=== PATIENT | female | born 1945 | race Caucasian/White ===

== ENCOUNTER → 2016-12-12 | Outpatient (CLI) | payer MEDICARE, BC ==
[~2016-12-12] VITALS: Ht 170.2 cm; Wt 87.5 kg
[~2016-12-12] MED LIST: /WARF2TA PO; ASPI81TA PO; AUGM875T27 PO; CLAR10CA3 PO; COUM1TAB19 PO; COUM2TAB22 PO; FURO40TA2 PO; HYDR200T2 PO; HYDR200T3 PO; IBUPOTC PO; LASI40TA PO; LEVO175T2 PO; LIDOCAINE 2% INJ 100 MG/5 ML SDV (FOR ANES.) As Ordered ONE; METO12TA PO; MULTTAB4 PO; NS 1,000 ML IV ONE; PLAQ200T PO; PROPOFOL 500 MG/50 ML VIAL As Ordered ONE; SYNT175T2 PO; TYLE500T78 PO; VITA100067 PO; VITAD1000T PO
--- NOTE | 2016-12-12 09:48 | ROOR ---
Patient Name: Joyce Ferrer Procedure Date: 12/12/2016 9:20 AM Date of : 1945 Age: 71 Room: [facility] Gender: Female Note Status: Finalized Procedure: Colonoscopy Indications: Screening for colorectal malignant neoplasm Providers: DO Yung Garcia MD: FORTINO SANDERS Requesting Provider: Medicines: Propofol per Anesthesia Complications: No immediate complications. Procedure: Pre-Anesthesia Assessment: - Prior to the procedure, a History and Physical was performed, and patient medications and allergies were reviewed. The patient is competent. The risks and benefits of the procedure and the sedation options and risks were discussed with the patient. All questions were answered and informed consent was obtained. Patient identification and proposed procedure were verified by the physician, the nurse, the anesthesiologist and the wet process technician in the endoscopy suite. Mental Status Examination: alert and oriented. Airway Examination: normal oropharyngeal airway and neck mobility. Respiratory Examination: clear to auscultation. CV Examination: normal. Prophylactic Antibiotics: The patient does not require prophylactic antibiotics. Prior Anticoagulants: The patient has taken Coumadin (warfarin). ASA Grade Assessment: III - A patient with severe systemic disease. After reviewing the risks and benefits, the patient was deemed in satisfactory condition to undergo the procedure. The anesthesia plan was to use monitored anesthesia care (MAC). Immediately prior to administration of medications, the patient was re-assessed for adequacy to receive sedatives. The heart rate, respiratory rate, oxygen saturations, blood pressure, adequacy of pulmonary ventilation, and response to care were monitored throughout the procedure. The physical status of the patient was re-assessed after the procedure. The Colonoscope was introduced through the anus and advanced to the cecum, identified by the appendiceal orifice, ileocecal valve and palpation. The colonoscopy was performed without difficulty. The patient tolerated the procedure well. Findings: The perianal exam findings include internal hemorrhoids (Grade I). A less than 5 mm polyp was found in the transverse colon. The polyp was hyperplastic. The polyp was removed with a cold biopsy forceps. Resection and retrieval were complete. A 8 mm polyp was found in the sigmoid colon. The polyp was semi-pedunculated. The polyp was removed with a hot snare. Resection was complete, but the polyp tissue was not retrieved. Multiple small and large-mouthed diverticula were found in the sigmoid colon. Impression: - Internal hemorrhoids (Grade I) found on perianal exam. - One less than 5 mm polyp in the transverse colon, removed with a cold biopsy forceps. Resected and retrieved. - One 8 mm polyp in the sigmoid colon, removed with a hot snare. Complete resection. Polyp tissue not retrieved. - Diverticulosis in the sigmoid colon. Recommendation: - Patient has a contact number available for emergencies. The signs and symptoms of potential delayed complications were discussed with the patient. Return to normal activities tomorrow. Written discharge instructions were provided to the patient. - Repeat colonoscopy in 3 - 5 years for surveillance based on pathology results. - Return to my office PRN. Sam Salinas DO 12/12/2016 9:47:42 AM This report has been signed electronically. Number of Addenda: 0 Note Initiated On: 12/12/2016 9:20 AM Estimated Blood Loss: Estimated blood loss: none.
[2016-12-12 10:10] VITALS: BP 167/85
== END ==
LOC: M OPP 08:08
PROVIDERS: ATTEND Surgery
DX: Z12.11 Encounter for screening for malignant neoplasm of colon (principal); K64.0 First degree hemorrhoids; D12.3 Benign neoplasm of transverse colon; D12.5 Benign neoplasm of sigmoid colon; K57.30 Diverticulosis of large intestine without perforation or abscess without bleeding; E03.9 Hypothyroidism, unspecified; M19.90 Unspecified osteoarthritis, unspecified site; M32.9 Systemic lupus erythematosus, unspecified; Z79.01 Long term (current) use of anticoagulants; Z79.899 Other long term (current) drug therapy

== ENCOUNTER 2017-07-02 00:43 | Inpatient (IN) | payer MEDICARE, BC ==
[2017-07-02] MEDS: ONDANSETRON 4MG/2ML VIAL (J2405) IV (01:45)
[2017-07-02] MEDS: MECLIZINE 25 MG TABLET PO ×2 (01:45→21:19)
[2017-07-02 02:29] LABS: HEMATOCRIT 41.9 % (36.0-47.0); HEMOGLOBIN 13.5 g/dl (12.0-16.0); RED BLOOD COUNT 4.76 10^6/uL (4.00-5.40)
[2017-07-02 02:30] LABS: BASO % 0.1 % (0.0-1.0); EOS % 0.1 % (0.0-3.0); IMMATURE GRANULOCYTE % 0.2 % (0-0); MEAN CORPUSCULAR HEMOGLOBIN 28.4 pg (27.0-33.0); MEAN CORPUSCULAR HGB CONC 32.2 g/dl (32.0-36.5); MONO % 4.2 % (0.0-5.0); NEUTROPHILS % 88.4 % (36.0-66.0); PLATELET COUNT, AUTOMATED 324 10^3/uL (150-450)
[2017-07-02 02:31] LABS: LYMPH # 0.6 10^3/uL (1.5-4.5); MONO # 0.4 10^3/uL (0.0-0.8); NEUTROPHILS # 7.9 10^3/uL (1.8-7.7)
[2017-07-02 03:55] LABS: ANION GAP 6 MEQ/L (8-16); BLOOD UREA NITROGEN 18 MG/DL (7-18); CALCIUM LEVEL 8.8 MG/DL (8.8-10.2); CARBON DIOXIDE LEVEL 31 MEQ/L (21-32); CHLORIDE LEVEL 105 MEQ/L (98-107); POTASSIUM SERUM 4.2 MEQ/L (3.5-5.1); SODIUM LEVEL 142 MEQ/L (136-145)
[2017-07-02 03:56] LABS: CK-MB VALUE MASS 1.4 NG/ML (0.0-3.6); CPK CREATINE PHOSPHOKINASE 73 U/L (26-192); CREATININE FOR GFR 0.66 MG/DL (0.55-1.02); GLOMERULAR FILTRATION RATE > 60.0 (>39); MB/CK RELATIVE INDEX 1.91 (< OR =4); TROPONIN I < 0.02 NG/ML (< 0.10)
[2017-07-02 04:05] LABS: INR 2.07; PARTIAL THROMBOPLASTIN TIME 38.2 SECONDS (26.8-37.9)
[2017-07-02 04:29] LABS: GLUCOSE, FASTING 107 MG/DL (83-110)
[2017-07-02] MEDS: LORazepam 2 MG/ML VIAL (J2060) IV (04:34)
[2017-07-02 06:45] LABS: BEDSIDE GLUCOSE 93 MG/DL (83-110)
[2017-07-02] MEDS ORDERED: OMEPRAZOLE 20 MG CAP PO (13:15)
[2017-07-02] MEDS ORDERED: ONDANSETRON 4MG/2ML VIAL (J2405) IV (13:15)
[2017-07-02] MEDS ORDERED: FUROSEMIDE 40 MG TAB PO (13:15)
[2017-07-02] MEDS: LEVOTHYROXINE 75MCG TABLET (0.075MG) PO (14:15)
[2017-07-02] MEDS: LEVOTHYROXINE 100MCG TABLET (0.1MG) PO (14:15)
[2017-07-02] MEDS: VITAMIN D 1,000 INTERNATIONAL UNITS TABLET PO (14:38)
[2017-07-02] MEDS: WARFARIN SOD 2.5 MG TAB PO (18:13)
[2017-07-02] MEDS: HYDROXYCHLOROQUINE 200 MG TAB PO (21:19)
[2017-07-03] MEDS: MECLIZINE 25 MG TABLET PO ×3 (05:41→22:25)
[2017-07-03] MEDS: LEVOTHYROXINE 100MCG TABLET (0.1MG) PO (05:41)
[2017-07-03] MEDS: LEVOTHYROXINE 75MCG TABLET (0.075MG) PO (05:41)
[2017-07-03] MEDS: SODIUM CHLORIDE NASAL 0.65% SPRAY BTL (OCEAN) ×2 (05:44→22:28)
[2017-07-03 06:00] LABS: HEMATOCRIT 39.2 % (36.0-47.0); HEMOGLOBIN 12.4 g/dl (12.0-16.0); MEAN CORPUSCULAR HEMOGLOBIN 28.3 pg (27.0-33.0); MEAN CORPUSCULAR HGB CONC 31.6 g/dl (32.0-36.5); MEAN CORPUSCULAR VOLUME 89.5 fl (80.0-96.0); PLATELET COUNT, AUTOMATED 327 10^3/uL (150-450); RED BLOOD COUNT 4.38 10^6/uL (4.00-5.40); RED CELL DISTRIBUTION WIDTH 14.2 % (11.5-14.5); WHITE BLOOD COUNT 4.6 10^3/uL (4.0-10.0)
[2017-07-03 06:17] LABS: INR 1.96
[2017-07-03 06:22] LABS: ANION GAP 5 MEQ/L (8-16); BLOOD UREA NITROGEN 15 MG/DL (7-18); CALCIUM LEVEL 8.2 MG/DL (8.8-10.2); CARBON DIOXIDE LEVEL 30 MEQ/L (21-32); CHLORIDE LEVEL 106 MEQ/L (98-107); CREATININE FOR GFR 0.51 MG/DL (0.55-1.02); GLOMERULAR FILTRATION RATE > 60.0 (>39); GLUCOSE, FASTING 95 MG/DL (83-110); MAGNESIUM LEVEL 1.9 MG/DL (1.8-2.4); POTASSIUM SERUM 4.2 MEQ/L (3.5-5.1); SODIUM LEVEL 141 MEQ/L (136-145)
[2017-07-03] MEDS: HYDROXYCHLOROQUINE 200 MG TAB PO ×2 (08:43→22:25)
[2017-07-03] MEDS: VITAMIN D 1,000 INTERNATIONAL UNITS TABLET PO (08:43)
[2017-07-03] MEDS ORDERED: ENOXAPARIN 40 MG/0.4 ML SYRINGE (J1650) SC (09:00)
[2017-07-03] MEDS: WARFARIN SOD 2.5 MG TAB PO (17:59)
[2017-07-04] MEDS: LEVOTHYROXINE 75MCG TABLET (0.075MG) PO (05:37)
[2017-07-04] MEDS: LEVOTHYROXINE 100MCG TABLET (0.1MG) PO (05:37)
[2017-07-04] MEDS: MECLIZINE 25 MG TABLET PO ×3 (05:38→21:40)
[2017-07-04] MEDS: SODIUM CHLORIDE NASAL 0.65% SPRAY BTL (OCEAN) ×2 (05:39→21:40)
[2017-07-04] MEDS: ACETAMINOPHEN TAB 650MG DOSE (2X325MG) PO ×2 (05:42→21:50)
[2017-07-04 07:01] LABS: INR 1.66; PROTHROMBIN TIME 20.1 SECONDS (12.4-14.5)
[2017-07-04] MEDS: VITAMIN D 1,000 INTERNATIONAL UNITS TABLET PO (08:56)
[2017-07-04] MEDS: HYDROXYCHLOROQUINE 200 MG TAB PO ×2 (08:57→21:40)
[2017-07-04] MEDS: WARFARIN SOD 2.5 MG TAB PO (18:37)
[2017-07-05] MEDS: LEVOTHYROXINE 100MCG TABLET (0.1MG) PO (06:06)
[2017-07-05] MEDS: MECLIZINE 25 MG TABLET PO ×3 (06:06→21:51)
[2017-07-05] MEDS: LEVOTHYROXINE 75MCG TABLET (0.075MG) PO (06:06)
[2017-07-05] MEDS: ACETAMINOPHEN TAB 650MG DOSE (2X325MG) PO (06:08)
[2017-07-05] MEDS: SODIUM CHLORIDE NASAL 0.65% SPRAY BTL (OCEAN) ×2 (06:08→16:55)
[2017-07-05 06:15] LABS: PROTHROMBIN TIME 20.4 SECONDS (12.4-14.5)
[2017-07-05] MEDS: HYDROXYCHLOROQUINE 200 MG TAB PO ×2 (08:33→21:51)
[2017-07-05] MEDS: VITAMIN D 1,000 INTERNATIONAL UNITS TABLET PO (08:33)
[2017-07-05] MEDS ORDERED: WARFARIN SOD 2.5 MG TAB PO (09:00)
[2017-07-05] MEDS ORDERED: WARFARIN SOD 1 MG TAB PO ×2 (09:00→17:00)
[2017-07-05] MEDS: methylPREDNISolone INJ 125 MG/2 ML VIAL (J2930) IV ×2 (10:31→21:51)
[2017-07-05] MEDS: WARFARIN SOD 2.5 MG TAB PO (16:55)
[2017-07-05] MEDS: WARFARIN SOD 1 MG TAB PO (16:56)
[2017-07-06 06:14] LABS: INR 1.58; PROTHROMBIN TIME 19.3 SECONDS (12.4-14.5)
[2017-07-06] MEDS: LEVOTHYROXINE 75MCG TABLET (0.075MG) PO (06:33)
[2017-07-06] MEDS: MECLIZINE 25 MG TABLET PO ×3 (06:33→21:30)
[2017-07-06] MEDS: LEVOTHYROXINE 100MCG TABLET (0.1MG) PO (06:33)
[2017-07-06 08:30] LABS: HEMATOCRIT 42.6 % (36.0-47.0); HEMOGLOBIN 13.3 g/dl (12.0-16.0); MEAN CORPUSCULAR HEMOGLOBIN 27.9 pg (27.0-33.0); MEAN CORPUSCULAR HGB CONC 31.2 g/dl (32.0-36.5); MEAN CORPUSCULAR VOLUME 89.5 fl (80.0-96.0); PLATELET COUNT, AUTOMATED 312 10^3/uL (150-450); RED BLOOD COUNT 4.76 10^6/uL (4.00-5.40); RED CELL DISTRIBUTION WIDTH 13.7 % (11.5-14.5); WHITE BLOOD COUNT 6.6 10^3/uL (4.0-10.0)
[2017-07-06] MEDS ORDERED: WARFARIN SOD 2 MG TAB PO (08:30)
[2017-07-06 08:39] LABS: ANION GAP 9 MEQ/L (8-16); BLOOD UREA NITROGEN 15 MG/DL (7-18); CALCIUM LEVEL 8.7 MG/DL (8.8-10.2); CARBON DIOXIDE LEVEL 26 MEQ/L (21-32); CHLORIDE LEVEL 108 MEQ/L (98-107); CREATININE FOR GFR 0.46 MG/DL (0.55-1.02); GLOMERULAR FILTRATION RATE > 60.0 (>39); GLUCOSE, FASTING 140 MG/DL (83-110); POTASSIUM SERUM 4.7 MEQ/L (3.5-5.1); SODIUM LEVEL 143 MEQ/L (136-145)
[2017-07-06] MEDS: VITAMIN D 1,000 INTERNATIONAL UNITS TABLET PO (10:07)
[2017-07-06 10:08] LABS: NT-PRO BNP 685 PG/ML (<125)
[2017-07-06] MEDS: methylPREDNISolone INJ 125 MG/2 ML VIAL (J2930) IV ×2 (10:08→21:31)
[2017-07-06] MEDS: HYDROXYCHLOROQUINE 200 MG TAB PO ×2 (10:08→21:30)
[2017-07-06] MEDS: WARFARIN SOD 3 MG TAB PO (17:54)
[2017-07-06] MEDS: WARFARIN SOD 2 MG TAB PO (17:54)
[2017-07-06] MEDS: SODIUM CHLORIDE NASAL 0.65% SPRAY BTL (OCEAN) (21:31)
[2017-07-07] MEDS: MECLIZINE 25 MG TABLET PO ×3 (05:32→21:29)
[2017-07-07] MEDS: LEVOTHYROXINE 100MCG TABLET (0.1MG) PO (05:32)
[2017-07-07] MEDS: SODIUM CHLORIDE NASAL 0.65% SPRAY BTL (OCEAN) (05:32)
[2017-07-07] MEDS: LEVOTHYROXINE 75MCG TABLET (0.075MG) PO (05:32)
[2017-07-07 06:19] LABS: INR 2.12; PROTHROMBIN TIME 24.5 SECONDS (12.4-14.5)
[2017-07-07] MEDS: VITAMIN D 1,000 INTERNATIONAL UNITS TABLET PO (07:56)
[2017-07-07] MEDS: HYDROXYCHLOROQUINE 200 MG TAB PO ×2 (07:57→21:29)
[2017-07-07] MEDS: methylPREDNISolone INJ 125 MG/2 ML VIAL (J2930) IV ×2 (10:40→21:29)
[2017-07-07] MEDS: WARFARIN SOD 3 MG TAB PO (16:14)
[2017-07-08] MEDS: MECLIZINE 25 MG TABLET PO ×2 (06:11→13:34)
[2017-07-08] MEDS: LEVOTHYROXINE 75MCG TABLET (0.075MG) PO (06:11)
[2017-07-08] MEDS: LEVOTHYROXINE 100MCG TABLET (0.1MG) PO (06:11)
[2017-07-08 06:17] LABS: INR 3.04; PROTHROMBIN TIME 32.8 SECONDS (12.4-14.5)
[2017-07-08] MEDS: methylPREDNISolone INJ 125 MG/2 ML VIAL (J2930) IV (08:55)
[2017-07-08] MEDS: VITAMIN D 1,000 INTERNATIONAL UNITS TABLET PO (08:55)
[2017-07-08] MEDS: HYDROXYCHLOROQUINE 200 MG TAB PO (08:55)
== END 2017-07-08 13:55 | disposition home or self-care (01) | DRG 547 ==
LOC: M ED 00:43 → M ED INP 13:10 → M MSPAV 17:37
DX: M32.19 Other organ or system involvement in systemic lupus erythematosus (principal); H83.09 Labyrinthitis, unspecified ear; E03.9 Hypothyroidism, unspecified; Z86.711 Personal history of pulmonary embolism; Z79.01 Long term (current) use of anticoagulants; Z85.41 Personal history of malignant neoplasm of cervix uteri; Z79.899 Other long term (current) drug therapy

== ENCOUNTER 2017-07-16 15:29 | Outpatient (RCR) | payer MEDICARE, BC | END 2017-07-17 | LOC: M PT 15:29 | DX: Z51.89 Encounter for other specified aftercare (principal); R26.89 Other abnormalities of gait and mobility; R42 Dizziness and giddiness; M32.9 Systemic lupus erythematosus, unspecified | CPT/HCPCS: 97162 ==

== ENCOUNTER 2017-07-18 10:51 | Outpatient (RCR) | payer MEDICARE, BC | END 2017-08-14 | LOC: M PT 07-25 10:45 | DX: Z51.89 Encounter for other specified aftercare (principal); R42 Dizziness and giddiness; R26.89 Other abnormalities of gait and mobility | CPT/HCPCS: 97112 ==

== ENCOUNTER 2017-08-20 11:51 | Outpatient (RCR) | payer MEDICARE, BC | END 2017-09-14 | LOC: M PT 11:51 | DX: Z51.89 Encounter for other specified aftercare (principal); H81.399 Other peripheral vertigo, unspecified ear; R26.89 Other abnormalities of gait and mobility | CPT/HCPCS: 97112 ==

== ENCOUNTER → 2018-06-03 | Outpatient (REF) | payer MEDICARE, BC ==
[~2018-06-03] MED LIST changes: +JANT2TAB PO; +JANT3TAB PO; -LIDOCAINE 2% INJ 100 MG/5 ML SDV (FOR ANES.) As Ordered ONE; +MECL-68 PO; -NS 1,000 ML IV ONE; +OMEP40CA2 PO; -PROPOFOL 500 MG/50 ML VIAL As Ordered ONE; +ZOFR4TAB16 PO
[2018-06-03 13:23] LABS: TOTAL PROTEIN 6.5 GM/DL (6.4-8.2)
[2018-06-03 13:32] LABS: FOLATE 5.4 NG/ML (>5.4); VITAMIN B12 LEVEL 387 PG/ML (247-911)
[2018-06-03 13:36] LABS: HEMOGLOBIN A1c 5.5 %
[2018-06-04 13:31] LABS: ALBUMIN % 51.6 % (55.8-66.1); ALPHA-1-GLOBULIN % 6.2 % (2.9-4.9); ALPHA-2-GLOBULINS % 12.3 % (7.1-11.8); BETA-1-GLOBULINS % 6.4 % (4.7-7.2); BETA-2-GLOBULINS % 5.7 % (3.2-6.5); GAMMA GLOBULIN % 17.8 % (11.1-18.8)
[2018-06-04 13:32] LABS: ALBUMIN 3.35 GM/DL (3.29-5.55); BETA-1-GLOBULINS 0.42 GM/DL (0.28-0.60); BETA-2-GLOBULINS 0.37 GM/DL (0.19-0.55); GAMMA GLOBULINS 1.16 GM/DL (0.65-1.58)
[2018-06-07 00:25] LABS: VITAMIN B1 LEVEL WHOLE BLOOD 126.4 nmol/L (66.5-200.0); VITAMIN B6,PYRIDOXAL PHOSPHATE 2.2 ug/L (2.0-32.8); VITAMIN E(GAMMA TOCOPHEROL) 1.3 mg/L (0.5-4.9)
== END ==
LOC: M LABNEURO 11:09
PROVIDERS: ATTEND Psychiatry & Neurology Neurology
DX: E11.9 Type 2 diabetes mellitus without complications (principal); E53.8 Deficiency of other specified B group vitamins

== ENCOUNTER → 2020-11-10 | Outpatient (CLI) | payer MEDICARE, BC ==
[~2020-11-10] MED LIST changes: -/WARF2TA PO; -ASPI81TA PO; +CHIL1CHW5 PO; +COUM1TAB16 PO; -MECL-68 PO; +MECL1TAB31 PO; +METO-346 PO; -METO12TA PO; -OMEP40CA2 PO; +OMEP40CA97 PO
--- NOTE | 2020-11-10 09:49 | DEXAMM ---
INDICATION: M81.0 AGE RELATED OSTEOPOROSIS. COMPARISON: Comparison studies are from October 19, 2008, May 15, 2005, and April 11, 2000.. TECHNIQUE: Bone density was measured using dual-energy x-ray absorptionmetry (DEXA). FINDINGS: AP SPINE L1-L4 BMD 1.174 g/cm2 Young Adult T-Score -0.1 Age Matched Z-Score 1.7. LT FEMUR, TOTAL BMD 0.802 g/cm2 Young Adult T-Score -1.6 Age Matched Z-Score 0.2. LT NECK BMD 0.770 g/cm2 Young Adult T-Score -1.9 Age Matched Z-Score 0.1. RT FEMUR, TOTAL BMD 0.797 g/cm2 Young Adult T-Score -1.7 Age Matched Z-Score 0.2. RT NECK BMD 0.788 g/cm2 Young Adult T-Score -1.8 Age Matched Z-Score 0.2. IMPRESSION: There is normal bone density of the spine. There is low bone density of the left hip. There is low bone density of the right hip. The density of the spine has decreased 5.7% since the initial exam on April 11, 2000. The density of the spine decreased 13.0% since most recent exam on October 19, 2008. The density of the left hip has decreased 25.0% since initial exam on April 11, 2000. The density of the left hip has decreased 25.7% since most recent exam on October 19, 2008. The density of the right hip has decreased 25.9% since the initial exam on April 11, 2000. The density of the right hip has decreased 24.7% since the most recent exam on October 19, 2008. FOLLOW-UP: Recommendation for the next bone density exam: 2 years. <Electronically signed by Odin Sanchez > 11/10/20 0945
== END ==
LOC: M WHC 08:57
PROVIDERS: ATTEND Physician Assistant
DX: M81.0 Age-related osteoporosis without current pathological fracture (principal)

== ENCOUNTER 2022-01-11 10:39 | Inpatient (IN) | payer MEDICARE, BC ==
[2022-01-11] VITALS (11 sets, daily range): BP systolic 74–133; BP diastolic 48–75
[~2022-01-11] VITALS: Ht 167.6 cm; Wt 73.0 kg
[~2022-01-11 10:39] MED LIST changes: +OMEP40CA4 PO; -OMEP40CA97 PO
[2022-01-11] MEDS ORDERED: METH4PACK PO (11:04)
[2022-01-11] MEDS ORDERED: ONDANSETRON 4MG 2ML VIAL IV ONE (11:15)
[2022-01-11 11:49] LABS: BASO % 0.3 % (0.0-1.0); HEMATOCRIT 46.2 % (36.0-47.0); HEMOGLOBIN 14.3 g/dl (12.0-15.5); LYMPH # 0.6 10^3/uL (1.5-5.0); LYMPH % 8.1 % (24.0-44.0); MEAN CORPUSCULAR HEMOGLOBIN 28.2 pg (27.0-33.0); MEAN CORPUSCULAR VOLUME 91.1 fl (80.0-96.0); MONO # 0.5 10^3/uL (0.0-0.8); MONO % 7.6 % (2.0-8.0); NEUTROPHILS # 5.8 10^3/uL (1.5-8.5); NEUTROPHILS % 83.6 % (36.0-66.0); PLATELET COUNT, AUTOMATED 209 10^3/uL (150-450); RED BLOOD COUNT 5.07 10^6/uL (4.00-5.40)
[2022-01-11 12:18] LABS: ALBUMIN 3.1 GM/DL (3.2-5.2); ALT/SGPT 26 U/L (12-78); BILIRUBIN,TOTAL 0.5 MG/DL (0.2-1.0); BLOOD UREA NITROGEN 11 MG/DL (7-18); CARBON DIOXIDE LEVEL 35 MEQ/L (21-32); CHLORIDE LEVEL 101 MEQ/L (98-107); GLOMERULAR FILTRATION RATE > 60.0 (>39); GLUCOSE, FASTING 83 MG/DL (70-100); POTASSIUM SERUM 4.2 MEQ/L (3.5-5.1); SODIUM LEVEL 140 MEQ/L (136-145); TOTAL PROTEIN 6.3 GM/DL (6.4-8.2)
[2022-01-11 13:03] LABS: BASO % 0.4 % (0.0-1.0); HEMATOCRIT 49.9 % (36.0-47.0); HEMOGLOBIN 15.2 g/dl (12.0-15.5); LYMPH # 1.1 10^3/uL (1.5-5.0); LYMPH % 13.9 % (24.0-44.0); MEAN CORPUSCULAR HEMOGLOBIN 28.3 pg (27.0-33.0); MEAN CORPUSCULAR HGB CONC 30.5 g/dl (32.0-36.5); MEAN CORPUSCULAR VOLUME 92.8 fl (80.0-96.0); MONO # 0.6 10^3/uL (0.0-0.8); MONO % 7.6 % (2.0-8.0); NEUTROPHILS # 6.3 10^3/uL (1.5-8.5); NEUTROPHILS % 77.4 % (36.0-66.0); PLATELET COUNT, AUTOMATED 253 10^3/uL (150-450); RED BLOOD COUNT 5.38 10^6/uL (4.00-5.40); WHITE BLOOD COUNT 8.2 10^3/uL (4.0-10.0)
[2022-01-11 13:13] LABS: ABG BASE EXCESS 6.4 (-2.0-2.0); ABG HCO3 42.4 MEQ/L (22.0-26.0); ABG O2 SATURATION 96.3 % (95.0-99.0); ABG PARTIAL PRESSURE O2 104.2 mmHg (75.0-100.0); ABG STANDARD HCO3 30.2 MEQ/L (22.0-26.0); ABG TOTAL CO2 46.8 MEQ/L (23.0-31.0)
[2022-01-11] MEDS ORDERED: FUROSEMIDE 100MG/10ML VIAL (J1940) IV ONE (13:15)
[2022-01-11 13:16] LABS: INR 2.49; PROTHROMBIN TIME 27.3 SECONDS (12.7-14.5)
[2022-01-11 13:18] LABS: ABG PARTIAL PRESSURE CO2 143.1 mmHg (35.0-45.0)
[2022-01-11] MEDS ORDERED: ETOMIDATE INJ 20MG/10ML VIAL IV STA (13:26)
[2022-01-11] MEDS ORDERED: SUCCINYLCHOLINE INJ 200 MG/10 ML VIAL (J0330) IV STA (13:27)
[2022-01-11] MEDS ORDERED: PROPOFOL 1,000 MG/100 ML VIAL As Ordered ONE (13:33)
[2022-01-11] MEDS ORDERED: propofoL 1,000 MG in IV 1 EA IV SCH (13:45)
[2022-01-11] MEDS ORDERED: MIDAZOLAM INJ 2MG/2ML VIAL (J2250 PER 1MG) IV STA ×2 (13:55→16:45)
[2022-01-11] MEDS ORDERED: MIDAZOLAM INJ 2MG/2ML VIAL (J2250 PER 1MG) As Ordered ONE (13:56)
[2022-01-11] MEDS ORDERED: IPRATROPIUM 0.5MG/ALBUTEROL 2.5MG INH SOL UD 3ML (DUONEB) NEB ONE (14:05)
[2022-01-11] MEDS ORDERED: methylPREDNISolone 125MG 2ML VIAL IV ONE (14:30)
[2022-01-11 14:52] LABS: ABG BASE EXCESS 10.1 (-2.0-2.0); ABG HCO3 29.7 MEQ/L (22.0-26.0); ABG O2 SATURATION 99.7 % (95.0-99.0); ABG PARTIAL PRESSURE CO2 26.4 mmHg (35.0-45.0); ABG STANDARD HCO3 33.9 MEQ/L (22.0-26.0); ABG TOTAL CO2 30.5 MEQ/L (23.0-31.0)
[2022-01-11 15:05] LABS: ABG pH (ARTERIAL) 7.669 UNITS (7.350-7.450)
[2022-01-11 15:22] LABS: ALBUMIN 3.3 GM/DL (3.2-5.2); ALT/SGPT 28 U/L (12-78); BILIRUBIN,DIRECT 0.2 MG/DL (0.0-0.2); BILIRUBIN,TOTAL 0.6 MG/DL (0.2-1.0); BLOOD UREA NITROGEN 11 MG/DL (7-18); CALCIUM LEVEL 8.8 MG/DL (8.8-10.2); CARBON DIOXIDE LEVEL 36 MEQ/L (21-32); CHLORIDE LEVEL 100 MEQ/L (98-107); CREATININE FOR GFR 0.43 MG/DL (0.55-1.30); GLOMERULAR FILTRATION RATE > 60.0 (>39); GLUCOSE, FASTING 126 MG/DL (70-100); POTASSIUM SERUM 4.4 MEQ/L (3.5-5.1); SODIUM LEVEL 139 MEQ/L (136-145); THYROXINE (T4) 14.4 UG/DL (4.5-12.0); TOTAL PROTEIN 6.7 GM/DL (6.4-8.2)
[2022-01-11] MEDS: IPRATROPIUM 0.5MG/ALBUTEROL 2.5MG INH SOL UD 3ML (DUONEB) NEB SCH ×2 (15:31→20:20)
[2022-01-11] MEDS ORDERED: REFRIGERATOR IV KEYS XX PRN (16:00)
[2022-01-11] MEDS ORDERED: MIDAZOLAM INJ 2MG/2ML VIAL (J2250 PER 1MG) IV ONE (16:10)
[2022-01-11] MEDS: MIDAZOLAM HCL 100 MG in D5W 80 ML IV SCH (16:10)
[2022-01-11] MEDS ORDERED: FURO20TA2 PO (16:14)
[2022-01-11] MEDS ORDERED: IBAN150T6 PO (16:14)
[2022-01-11] MEDS ORDERED: VITA100093 PO (16:14)
[2022-01-11] MEDS ORDERED: ACET-683 PO (16:14)
[2022-01-11] MEDS ORDERED: MECL-86 PO (16:14)
[2022-01-11] MEDS ORDERED: HOME MED LIST COMPLETE! XX SCH (16:15)
[2022-01-11 16:29] LABS: NT-PRO BNP 1708 PG/ML (<450)
[2022-01-11] MEDS ORDERED: MIDAZOLAM HCL 100 MG in D5W 80 ML IV SCH (16:50)
[2022-01-11 17:49] LABS: ABG BASE EXCESS 12.2 (-2.0-2.0); ABG HCO3 33.9 MEQ/L (22.0-26.0); ABG O2 SATURATION 98.5 % (95.0-99.0); ABG PARTIAL PRESSURE CO2 33.7 mmHg (35.0-45.0); ABG PARTIAL PRESSURE O2 95.9 mmHg (75.0-100.0); ABG STANDARD HCO3 36.1 MEQ/L (22.0-26.0); ABG TOTAL CO2 34.9 MEQ/L (23.0-31.0)
[2022-01-11] MEDS ORDERED: ETOMIDATE INJ 20MG/10ML VIAL ONE (18:13)
[2022-01-11] MEDS ORDERED: SUCCINYLCHOLINE 100 MG/5 ML SYRINGE (J0330) ONE (18:13)
[2022-01-11 19:40] LABS: MB/CK RELATIVE INDEX 1.05 (< OR =4)
[2022-01-11 20:42] LABS: ABG BASE EXCESS 9.6 (-2.0-2.0); ABG O2 SATURATION 99.3 % (95.0-99.0); ABG PARTIAL PRESSURE CO2 35.8 mmHg (35.0-45.0); ABG PARTIAL PRESSURE O2 146.9 mmHg (75.0-100.0); ABG STANDARD HCO3 33.4 MEQ/L (22.0-26.0); ABG TOTAL CO2 33.1 MEQ/L (23.0-31.0); ABG pH (ARTERIAL) 7.569 UNITS (7.350-7.450)
[2022-01-11] MEDS: CHLORHEXIDINE GLUCONATE 0.12 % 15ML UDC (PERIDEX ORAL RINSE) MT SCH (22:40)
[2022-01-12] VITALS (25 sets, daily range): BP systolic 86–125; BP diastolic 39–68
[2022-01-12] MEDS ORDERED: NS 1,000 ML IV SCH (01:45)
[2022-01-12 05:23] LABS: HEMATOCRIT 44.6 % (36.0-47.0); HEMOGLOBIN 14.1 g/dl (12.0-15.5); MEAN CORPUSCULAR HGB CONC 31.6 g/dl (32.0-36.5); MEAN CORPUSCULAR VOLUME 88.5 fl (80.0-96.0); PLATELET COUNT, AUTOMATED 204 10^3/uL (150-450); RED BLOOD COUNT 5.04 10^6/uL (4.00-5.40); WHITE BLOOD COUNT 10.8 10^3/uL (4.0-10.0)
[2022-01-12 05:57] LABS: ALBUMIN 2.7 GM/DL (3.2-5.2); ALT/SGPT 31 U/L (12-78); BILIRUBIN,TOTAL 0.9 MG/DL (0.2-1.0); BLOOD UREA NITROGEN 21 MG/DL (7-18); CALCIUM LEVEL 8.6 MG/DL (8.8-10.2); CARBON DIOXIDE LEVEL 34 MEQ/L (21-32); CHLORIDE LEVEL 100 MEQ/L (98-107); CREATININE FOR GFR 0.65 MG/DL (0.55-1.30); GLOMERULAR FILTRATION RATE > 60.0 (>39); GLUCOSE, FASTING 103 MG/DL (70-100); MAGNESIUM LEVEL 1.8 MG/DL (1.8-2.4); POTASSIUM SERUM 3.6 MEQ/L (3.5-5.1); SODIUM LEVEL 142 MEQ/L (136-145); TOTAL PROTEIN 6.2 GM/DL (6.4-8.2)
[2022-01-12 06:03] LABS: ABG BASE EXCESS 10.2 (-2.0-2.0); ABG O2 SATURATION 98.8 % (95.0-99.0); ABG PARTIAL PRESSURE CO2 41.9 mmHg (35.0-45.0); ABG PARTIAL PRESSURE O2 124.3 mmHg (75.0-100.0); ABG TOTAL CO2 35.3 MEQ/L (23.0-31.0); ABG pH (ARTERIAL) 7.527 UNITS (7.350-7.450)
[2022-01-12] MEDS: IPRATROPIUM 0.5MG/ALBUTEROL 2.5MG INH SOL UD 3ML (DUONEB) NEB SCH ×4 (07:04→19:53)
[2022-01-12] MEDS: MIDAZOLAM HCL 100 MG in D5W 80 ML IV SCH (07:50)
[2022-01-12 08:17] LABS: INR 2.94
[2022-01-12] MEDS: CHLORHEXIDINE GLUCONATE 0.12 % 15ML UDC (PERIDEX ORAL RINSE) MT SCH ×2 (08:46→20:03)
[2022-01-12] MEDS ORDERED: dexmedeTOMidine 200 MCG in IV 1 EA IV SCH (09:00)
[2022-01-12] MEDS: HYDROXYCHLOROQUINE 200 MG TAB PO SCH ×3 (11:28→20:03)
[2022-01-12] MEDS: PANTOPRAZOLE 40MG VIAL IV SCH (11:28)
[2022-01-12] MEDS: NS 1,000 ML IV SCH (14:30)
[2022-01-12] MEDS ORDERED: WARFARIN SOD 3MG TAB PO SCH (17:00)
[2022-01-12] MEDS: fentaNYL 100 MCG/2 ML INJECTION IV PRN (22:52)
[2022-01-13] VITALS (29 sets, daily range): BP systolic 93–154; BP diastolic 51–72
[2022-01-13] MEDS: NS 1,000 ML IV SCH ×3 (00:34→21:14)
[2022-01-13] MEDS ORDERED: OLANZapine INTRAMUSCULAR 10MG VIAL IM ONE (02:00)
[2022-01-13] MEDS: MIDAZOLAM HCL 100 MG in D5W 80 ML IV SCH (03:53)
[2022-01-13 04:29] LABS: INR 2.61; PROTHROMBIN TIME 28.3 SECONDS (12.7-14.5)
[2022-01-13 06:22] LABS: ABG BASE EXCESS 8.2 (-2.0-2.0); ABG HCO3 33.7 MEQ/L (22.0-26.0); ABG O2 SATURATION 95.5 % (95.0-99.0); ABG PARTIAL PRESSURE CO2 50.3 mmHg (35.0-45.0); ABG PARTIAL PRESSURE O2 79.1 mmHg (75.0-100.0); ABG STANDARD HCO3 31.9 MEQ/L (22.0-26.0); ABG TOTAL CO2 35.3 MEQ/L (23.0-31.0); ABG pH (ARTERIAL) 7.444 UNITS (7.350-7.450)
[2022-01-13] MEDS: IPRATROPIUM 0.5MG/ALBUTEROL 2.5MG INH SOL UD 3ML (DUONEB) NEB SCH ×4 (07:31→19:04)
[2022-01-13 07:51] LABS: ALBUMIN 2.5 GM/DL (3.2-5.2); ALT/SGPT 25 U/L (12-78); BILIRUBIN,TOTAL 0.9 MG/DL (0.2-1.0); BLOOD UREA NITROGEN 23 MG/DL (7-18); CALCIUM LEVEL 7.9 MG/DL (8.8-10.2); CARBON DIOXIDE LEVEL 31 MEQ/L (21-32); CHLORIDE LEVEL 106 MEQ/L (98-107); CREATININE FOR GFR 0.55 MG/DL (0.55-1.30); GLOMERULAR FILTRATION RATE > 60.0 (>39); GLUCOSE, FASTING 119 MG/DL (70-100); PHOSPHORUS LEVEL 3.8 MG/DL (2.5-4.9); POTASSIUM SERUM 3.9 MEQ/L (3.5-5.1); SODIUM LEVEL 144 MEQ/L (136-145); TOTAL PROTEIN 5.4 GM/DL (6.4-8.2)
[2022-01-13] MEDS: PANTOPRAZOLE 40MG VIAL IV SCH (08:03)
[2022-01-13] MEDS: HYDROXYCHLOROQUINE 200 MG TAB PO SCH ×3 (08:03→21:14)
[2022-01-13] MEDS: CHLORHEXIDINE GLUCONATE 0.12 % 15ML UDC (PERIDEX ORAL RINSE) MT SCH ×2 (08:03→21:14)
[2022-01-13 08:11] LABS: BASO % 0.3 % (0.0-1.0); HEMOGLOBIN 13.5 g/dl (12.0-15.5); LYMPH # 0.7 10^3/uL (1.5-5.0); MEAN CORPUSCULAR HEMOGLOBIN 28.2 pg (27.0-33.0); MEAN CORPUSCULAR HGB CONC 31.4 g/dl (32.0-36.5); MEAN CORPUSCULAR VOLUME 89.8 fl (80.0-96.0); MONO % 10.8 % (2.0-8.0); NEUTROPHILS # 7.5 10^3/uL (1.5-8.5); NEUTROPHILS % 80.3 % (36.0-66.0); PLATELET COUNT, AUTOMATED 153 10^3/uL (150-450); RED BLOOD COUNT 4.79 10^6/uL (4.00-5.40); WHITE BLOOD COUNT 9.3 10^3/uL (4.0-10.0)
[2022-01-13] MEDS ORDERED: FUROSEMIDE 20MG/2ML VIAL (J1940) IV ONE (09:15)
[2022-01-13] MEDS: MIDAZOLAM INJ 2MG/2ML VIAL (J2250 PER 1MG) IV PRN ×3 (10:25→21:40)
[2022-01-13] MEDS: fentaNYL 100 MCG/2 ML INJECTION IV PRN ×2 (10:29→16:05)
[2022-01-13] MEDS ORDERED: MORPHINE 2 MG/ML 1ML VIAL IV ONE (10:45)
[2022-01-13] MEDS: dexmedeTOMidine 200 MCG in IV 1 EA IV SCH ×4 (10:47→22:48)
[2022-01-13 14:14] LABS: ANTI DOUBLE STRAND-DNA AB 1 IU/mL (0-9); ANTINUCLEAR ANTIBODIES DIRECT Positive (Negative); RNP ANTIBODIES <0.2 AI (0.0-0.9); SJOGREN'S ANTI SS-A <0.2 AI (0.0-0.9); SJOGREN'S ANTI SS-B <0.2 AI (0.0-0.9); SMITH ANTIBODIES <0.2 AI (0.0-0.9)
[2022-01-13] MEDS ORDERED: WARFARIN SOD 2MG TAB PO SCH (17:00)
[2022-01-14] VITALS (33 sets, daily range): BP systolic 102–194; BP diastolic 54–94
[2022-01-14] MEDS: dexmedeTOMidine 200 MCG in IV 1 EA IV SCH (01:40)
[2022-01-14] MEDS: fentaNYL 100 MCG/2 ML INJECTION IV PRN ×2 (02:42→04:44)
[2022-01-14] MEDS: MIDAZOLAM INJ 2MG/2ML VIAL (J2250 PER 1MG) IV PRN (02:46)
[2022-01-14] MEDS: NS 1,000 ML IV SCH ×2 (04:53→17:30)
[2022-01-14 04:54] LABS: BASO % 0.3 % (0.0-1.0); EOS # 0.5 10^3/uL (0.0-0.5); EOS % 4.2 % (0.0-3.0); HEMATOCRIT 45.1 % (36.0-47.0); HEMOGLOBIN 13.9 g/dl (12.0-15.5); LYMPH # 0.5 10^3/uL (1.5-5.0); LYMPH % 4.2 % (24.0-44.0); MEAN CORPUSCULAR HEMOGLOBIN 27.7 pg (27.0-33.0); MEAN CORPUSCULAR HGB CONC 30.8 g/dl (32.0-36.5); MONO # 0.8 10^3/uL (0.0-0.8); MONO % 6.4 % (2.0-8.0); NEUTROPHILS # 10.3 10^3/uL (1.5-8.5); NEUTROPHILS % 84.2 % (36.0-66.0); PLATELET COUNT, AUTOMATED 158 10^3/uL (150-450); RED BLOOD COUNT 5.01 10^6/uL (4.00-5.40); WHITE BLOOD COUNT 12.3 10^3/uL (4.0-10.0)
[2022-01-14 05:27] LABS: ALBUMIN 2.1 GM/DL (3.2-5.2); ALT/SGPT 22 U/L (12-78); BILIRUBIN,TOTAL 1.2 MG/DL (0.2-1.0); BLOOD UREA NITROGEN 14 MG/DL (7-18); CARBON DIOXIDE LEVEL 27 MEQ/L (21-32); CHLORIDE LEVEL 108 MEQ/L (98-107); CREATININE FOR GFR 0.47 MG/DL (0.55-1.30); GLOMERULAR FILTRATION RATE > 60.0 (>39); GLUCOSE, FASTING 132 MG/DL (70-100); MAGNESIUM LEVEL 1.8 MG/DL (1.8-2.4); POTASSIUM SERUM 4.4 MEQ/L (3.5-5.1); SODIUM LEVEL 140 MEQ/L (136-145); TOTAL PROTEIN 5.8 GM/DL (6.4-8.2)
[2022-01-14 05:40] LABS: ABG BASE EXCESS 3.3 (-2.0-2.0); ABG HCO3 28.6 MEQ/L (22.0-26.0); ABG O2 SATURATION 97.6 % (95.0-99.0); ABG PARTIAL PRESSURE CO2 45.7 mmHg (35.0-45.0); ABG STANDARD HCO3 27.5 MEQ/L (22.0-26.0); ABG pH (ARTERIAL) 7.414 UNITS (7.350-7.450)
[2022-01-14] MEDS ORDERED: OLANZapine INTRAMUSCULAR 10MG VIAL IM ONE ×2 (06:00→07:00)
[2022-01-14] MEDS: IPRATROPIUM 0.5MG/ALBUTEROL 2.5MG INH SOL UD 3ML (DUONEB) NEB SCH ×4 (07:08→19:14)
[2022-01-14] MEDS ORDERED: METOPROLOL 5 MG/5 ML VIAL IV STA (08:03)
[2022-01-14] MEDS ORDERED: dexameTHASONE 4 MG/ML 1ML VIAL (J1100 PER 1MG) IV ONE (08:05)
[2022-01-14] MEDS ORDERED: FUROSEMIDE 20MG/2ML VIAL (J1940) IV ONE (08:05)
[2022-01-14] MEDS: PANTOPRAZOLE 40MG VIAL IV SCH (08:19)
[2022-01-14] MEDS: HYDROXYCHLOROQUINE 200 MG TAB PO SCH ×3 (08:20→20:56)
[2022-01-14] MEDS: CHLORHEXIDINE GLUCONATE 0.12 % 15ML UDC (PERIDEX ORAL RINSE) MT SCH ×2 (08:20→20:56)
[2022-01-14 08:39] LABS: INR 1.53; PROTHROMBIN TIME 18.8 SECONDS (12.7-14.5)
[2022-01-14 14:02] LABS: ABG BASE EXCESS 1.9 (-2.0-2.0); ABG O2 SATURATION 97.1 % (95.0-99.0); ABG PARTIAL PRESSURE CO2 39.1 mmHg (35.0-45.0); ABG PARTIAL PRESSURE O2 84.8 mmHg (75.0-100.0); ABG STANDARD HCO3 26.1 MEQ/L (22.0-26.0); ABG TOTAL CO2 27.2 MEQ/L (23.0-31.0); ABG pH (ARTERIAL) 7.441 UNITS (7.350-7.450)
[2022-01-14] MEDS ORDERED: WARFARIN SOD 3MG TAB PO ONE (17:00)
[2022-01-14] MEDS: ACETYLCYSTEINE 10% 30 ML VIAL INH SCH (19:14)
[2022-01-15] VITALS (23 sets, daily range): BP systolic 99–147; BP diastolic 55–76; O2SAT 96–97
[2022-01-15] MEDS: NS 1,000 ML IV SCH (02:30)
[2022-01-15 05:10] LABS: BASO % 0.2 % (0.0-1.0); EOS # 0.1 10^3/uL (0.0-0.5); EOS % 0.5 % (0.0-3.0); HEMATOCRIT 43.4 % (36.0-47.0); HEMOGLOBIN 13.1 g/dl (12.0-15.5); LYMPH # 0.5 10^3/uL (1.5-5.0); LYMPH % 4.1 % (24.0-44.0); MEAN CORPUSCULAR HEMOGLOBIN 28.2 pg (27.0-33.0); MEAN CORPUSCULAR HGB CONC 30.2 g/dl (32.0-36.5); MEAN CORPUSCULAR VOLUME 93.3 fl (80.0-96.0); MONO # 0.9 10^3/uL (0.0-0.8); MONO % 7.6 % (2.0-8.0); NEUTROPHILS # 10.6 10^3/uL (1.5-8.5); NEUTROPHILS % 86.9 % (36.0-66.0); PLATELET COUNT, AUTOMATED 187 10^3/uL (150-450); RED BLOOD COUNT 4.65 10^6/uL (4.00-5.40); WHITE BLOOD COUNT 12.2 10^3/uL (4.0-10.0)
[2022-01-15 05:40] LABS: ALBUMIN 2.1 GM/DL (3.2-5.2); ALT/SGPT 22 U/L (12-78); BILIRUBIN,TOTAL 0.7 MG/DL (0.2-1.0); BLOOD UREA NITROGEN 19 MG/DL (7-18); CALCIUM LEVEL 8.4 MG/DL (8.8-10.2); CARBON DIOXIDE LEVEL 32 MEQ/L (21-32); CHLORIDE LEVEL 112 MEQ/L (98-107); CREATININE FOR GFR 0.49 MG/DL (0.55-1.30); GLOMERULAR FILTRATION RATE > 60.0 (>39); GLUCOSE, FASTING 84 MG/DL (70-100); MAGNESIUM LEVEL 2.2 MG/DL (1.8-2.4); PHOSPHORUS LEVEL 3.2 MG/DL (2.5-4.9); POTASSIUM SERUM 4.2 MEQ/L (3.5-5.1); SODIUM LEVEL 146 MEQ/L (136-145); TOTAL PROTEIN 6.1 GM/DL (6.4-8.2)
[2022-01-15 06:12] LABS: ABG BASE EXCESS 1.4 (-2.0-2.0); ABG HCO3 29.4 MEQ/L (22.0-26.0); ABG O2 SATURATION 96.7 % (95.0-99.0); ABG PARTIAL PRESSURE O2 93.3 mmHg (75.0-100.0); ABG STANDARD HCO3 25.7 MEQ/L (22.0-26.0); ABG TOTAL CO2 31.3 MEQ/L (23.0-31.0); ABG pH (ARTERIAL) 7.295 UNITS (7.350-7.450)
[2022-01-15 06:15] LABS: ABG PARTIAL PRESSURE CO2 61.9 mmHg (35.0-45.0)
[2022-01-15] MEDS: IPRATROPIUM 0.5MG/ALBUTEROL 2.5MG INH SOL UD 3ML (DUONEB) NEB SCH ×4 (07:08→19:12)
[2022-01-15] MEDS: ACETYLCYSTEINE 10% 30 ML VIAL INH SCH ×2 (07:09→19:12)
[2022-01-15] MEDS ORDERED: FUROSEMIDE 20MG/2ML VIAL (J1940) IV ONE (08:05)
[2022-01-15] MEDS: PANTOPRAZOLE 40MG VIAL IV SCH (09:05)
[2022-01-15] MEDS: HYDROXYCHLOROQUINE 200 MG TAB PO SCH ×3 (09:05→20:22)
[2022-01-15] MEDS: VITAMIN D 1,000 INTERNATIONAL UNITS TABLET PO SCH (09:05)
[2022-01-15] MEDS: LEVOTHYROXINE 100MCG TABLET (0.1MG) PO SCH (09:05)
[2022-01-15] MEDS: LEVOTHYROXINE 75MCG TABLET (0.075MG) PO SCH (09:05)
[2022-01-15 09:37] LABS: ABG BASE EXCESS 3.1 (-2.0-2.0); ABG HCO3 28.5 MEQ/L (22.0-26.0); ABG O2 SATURATION 98.5 % (95.0-99.0); ABG PARTIAL PRESSURE CO2 46.3 mmHg (35.0-45.0); ABG PARTIAL PRESSURE O2 111.8 mmHg (75.0-100.0); ABG STANDARD HCO3 27.3 MEQ/L (22.0-26.0); ABG TOTAL CO2 29.9 MEQ/L (23.0-31.0); ABG pH (ARTERIAL) 7.407 UNITS (7.350-7.450)
[2022-01-15 11:31] LABS: BASO # 0.1 10^3/uL (0.0-0.2); BASO % 0.5 % (0.0-1.0); EOS # 0.1 10^3/uL (0.0-0.5); EOS % 0.4 % (0.0-3.0); HEMATOCRIT 47.5 % (36.0-47.0); HEMOGLOBIN 14.6 g/dl (12.0-15.5); LYMPH # 0.6 10^3/uL (1.5-5.0); LYMPH % 4.7 % (24.0-44.0); MEAN CORPUSCULAR HEMOGLOBIN 28.3 pg (27.0-33.0); MEAN CORPUSCULAR HGB CONC 30.7 g/dl (32.0-36.5); MEAN CORPUSCULAR VOLUME 92.1 fl (80.0-96.0); NEUTROPHILS # 11.2 10^3/uL (1.5-8.5); NEUTROPHILS % 85.9 % (36.0-66.0); PLATELET COUNT, AUTOMATED 203 10^3/uL (150-450); RED BLOOD COUNT 5.16 10^6/uL (4.00-5.40); WHITE BLOOD COUNT 13.1 10^3/uL (4.0-10.0)
[2022-01-15 11:44] LABS: INR 1.46; PROTHROMBIN TIME 18.1 SECONDS (12.7-14.5)
[2022-01-15] MEDS ORDERED: WARFARIN SOD 5MG TAB PO ONE (17:00)
[2022-01-16] VITALS (19 sets, daily range): BP systolic 87–142; BP diastolic 46–63; O2SAT 95–100
[2022-01-16] MEDS: LEVOTHYROXINE 100MCG TABLET (0.1MG) PO SCH (05:12)
[2022-01-16] MEDS: LEVOTHYROXINE 75MCG TABLET (0.075MG) PO SCH (05:12)
[2022-01-16 06:03] LABS: ABG BASE EXCESS 2.8 (-2.0-2.0); ABG HCO3 30.5 MEQ/L (22.0-26.0); ABG PARTIAL PRESSURE O2 111.3 mmHg (75.0-100.0); ABG TOTAL CO2 32.3 MEQ/L (23.0-31.0); ABG pH (ARTERIAL) 7.318 UNITS (7.350-7.450)
[2022-01-16 06:06] LABS: ABG PARTIAL PRESSURE CO2 60.8 mmHg (35.0-45.0)
[2022-01-16 06:59] LABS: INR 1.92; PROTHROMBIN TIME 22.4 SECONDS (12.7-14.5)
[2022-01-16 07:33] LABS: ALBUMIN 2.3 GM/DL (3.2-5.2); ALT/SGPT 23 U/L (12-78); BILIRUBIN,TOTAL 0.6 MG/DL (0.2-1.0); BLOOD UREA NITROGEN 27 MG/DL (7-18); CALCIUM LEVEL 8.6 MG/DL (8.8-10.2); CARBON DIOXIDE LEVEL 29 MEQ/L (21-32); CHLORIDE LEVEL 114 MEQ/L (98-107); CREATININE FOR GFR 0.45 MG/DL (0.55-1.30); GLOMERULAR FILTRATION RATE > 60.0 (>39); GLUCOSE, FASTING 67 MG/DL (70-100); PHOSPHORUS LEVEL 3.8 MG/DL (2.5-4.9); POTASSIUM SERUM 3.7 MEQ/L (3.5-5.1); SODIUM LEVEL 150 MEQ/L (136-145); TOTAL PROTEIN 5.3 GM/DL (6.4-8.2)
[2022-01-16] MEDS: IPRATROPIUM 0.5MG/ALBUTEROL 2.5MG INH SOL UD 3ML (DUONEB) NEB SCH ×4 (08:14→19:07)
[2022-01-16] MEDS: ACETYLCYSTEINE 10% 30 ML VIAL INH SCH ×2 (08:15→19:08)
[2022-01-16 08:24] LABS: BASO % 0.3 % (0.0-1.0); HEMATOCRIT 44.8 % (36.0-47.0); HEMOGLOBIN 12.9 g/dl (12.0-15.5); LYMPH # 0.5 10^3/uL (1.5-5.0); LYMPH % 4.4 % (24.0-44.0); MEAN CORPUSCULAR HEMOGLOBIN 27.2 pg (27.0-33.0); MEAN CORPUSCULAR HGB CONC 28.8 g/dl (32.0-36.5); MEAN CORPUSCULAR VOLUME 94.5 fl (80.0-96.0); MONO # 1.1 10^3/uL (0.0-0.8); MONO % 10.7 % (2.0-8.0); NEUTROPHILS # 8.6 10^3/uL (1.5-8.5); NEUTROPHILS % 84.3 % (36.0-66.0); PLATELET COUNT, AUTOMATED 200 10^3/uL (150-450); RED BLOOD COUNT 4.74 10^6/uL (4.00-5.40); WHITE BLOOD COUNT 10.2 10^3/uL (4.0-10.0)
[2022-01-16] MEDS: PANTOPRAZOLE 40MG VIAL IV SCH (08:26)
[2022-01-16] MEDS: HYDROXYCHLOROQUINE 200 MG TAB PO SCH ×3 (08:26→20:17)
[2022-01-16] MEDS: VITAMIN D 1,000 INTERNATIONAL UNITS TABLET PO SCH (08:26)
[2022-01-16] MEDS ORDERED: D5W 500 ML IV ONE (08:50)
[2022-01-16] MEDS ORDERED: VARIBAR NECTAR 40% w/v 240ML SUSP BTL As Ordered ONE (10:39)
[2022-01-16] MEDS ORDERED: VARIBAR PUDDING 40% w/v 230ML TUBE As Ordered ONE (10:40)
[2022-01-16] MEDS ORDERED: E-Z-PAQUE 96% w/w SUSP 176GM BTL As Ordered ONE (10:40)
[2022-01-16] MEDS: AZITHROMYCIN INJ 500 MG, VIAL MATE ADAPTER 1 EACH in NS 250 ML IV SCH (13:56)
[2022-01-16] MEDS: ENOXAPARIN 80MG/0.8ML SYRINGE (J1650 PER 10MG) SC SCH ×2 (13:59→23:37)
[2022-01-16 15:27] LABS: ABG BASE EXCESS 2.6 (-2.0-2.0); ABG HCO3 30.4 MEQ/L (22.0-26.0); ABG O2 SATURATION 99.1 % (95.0-99.0); ABG STANDARD HCO3 26.8 MEQ/L (22.0-26.0); ABG TOTAL CO2 32.2 MEQ/L (23.0-31.0); ABG pH (ARTERIAL) 7.312 UNITS (7.350-7.450)
[2022-01-16 15:28] LABS: ABG PARTIAL PRESSURE CO2 61.4 mmHg (35.0-45.0)
[2022-01-16 17:25] LABS: APPEARANCE, URINE CLOUDY (CLEAR); BACTERIA, URINE AUTO NEGATIVE (NEGATIVE); BILIRUBIN, URINE AUTO NEGATIVE (NEGATIVE); BLOOD, URINE BLOOD 1+ (NEGATIVE); COLOR, URINE AMBER (YELLOW); GLUCOSE, URINE (UA) AUTO NEGATIVE (NEGATIVE); KETONE, URINE AUTO TRACE mg/dL (NEGATIVE); LEUKOCYTE ESTERASE, URINE AUTO 3+ (NEGATIVE); MUCUS, URINE SMALL (NEGATIVE); NITRITE, URINE AUTO NEGATIVE (NEGATIVE); PROTEIN, URINE AUTO 2+ mg/dL (NEGATIVE); RBC, URINE AUTO 56 /HPF (0-3); SPECIFIC GRAVITY URINE AUTO 1.024 (1.002-1.035); SQUAMOUS EPITHELIAL CELL UR AU 5 /HPF (0-6); WBC, URINE AUTO TNTC /HPF (0-3)
[2022-01-17] VITALS (20 sets, daily range): BP systolic 82–165; BP diastolic 45–70; O2SAT 98
[2022-01-17] MEDS: LEVOTHYROXINE 75MCG TABLET (0.075MG) PO SCH (05:18)
[2022-01-17] MEDS: LEVOTHYROXINE 100MCG TABLET (0.1MG) PO SCH (05:19)
[2022-01-17 05:40] LABS: BASO # 0.1 10^3/uL (0.0-0.2); BASO % 0.6 % (0.0-1.0); HEMATOCRIT 42.2 % (36.0-47.0); HEMOGLOBIN 12.3 g/dl (12.0-15.5); LYMPH # 0.7 10^3/uL (1.5-5.0); LYMPH % 8.4 % (24.0-44.0); MEAN CORPUSCULAR HEMOGLOBIN 28.1 pg (27.0-33.0); MEAN CORPUSCULAR HGB CONC 29.1 g/dl (32.0-36.5); MEAN CORPUSCULAR VOLUME 96.6 fl (80.0-96.0); MONO # 1.3 10^3/uL (0.0-0.8); MONO % 16.5 % (2.0-8.0); NEUTROPHILS # 5.8 10^3/uL (1.5-8.5); PLATELET COUNT, AUTOMATED 157 10^3/uL (150-450); RED BLOOD COUNT 4.37 10^6/uL (4.00-5.40); WHITE BLOOD COUNT 7.9 10^3/uL (4.0-10.0)
[2022-01-17 06:10] LABS: ABG BASE EXCESS 7.4 (-2.0-2.0); ABG HCO3 36.2 MEQ/L (22.0-26.0); ABG O2 SATURATION 98.8 % (95.0-99.0); ABG PARTIAL PRESSURE O2 138.4 mmHg (75.0-100.0); ABG STANDARD HCO3 31.3 MEQ/L (22.0-26.0); ABG TOTAL CO2 38.5 MEQ/L (23.0-31.0)
[2022-01-17 06:14] LABS: ABG PARTIAL PRESSURE CO2 73.6 mmHg (35.0-45.0)
[2022-01-17 06:20] LABS: ALBUMIN 2.1 GM/DL (3.2-5.2); ALT/SGPT 23 U/L (12-78); BILIRUBIN,TOTAL 0.4 MG/DL (0.2-1.0); BLOOD UREA NITROGEN 23 MG/DL (7-18); CALCIUM LEVEL 8.8 MG/DL (8.8-10.2); CARBON DIOXIDE LEVEL 33 MEQ/L (21-32); CHLORIDE LEVEL 108 MEQ/L (98-107); CREATININE FOR GFR 0.38 MG/DL (0.55-1.30); GLOMERULAR FILTRATION RATE > 60.0 (>39); GLUCOSE, FASTING 85 MG/DL (70-100); MAGNESIUM LEVEL 2.2 MG/DL (1.8-2.4); PHOSPHORUS LEVEL 3.2 MG/DL (2.5-4.9); POTASSIUM SERUM 4.4 MEQ/L (3.5-5.1); SODIUM LEVEL 142 MEQ/L (136-145); TOTAL PROTEIN 5.9 GM/DL (6.4-8.2)
[2022-01-17] MEDS: ACETYLCYSTEINE 10% 30 ML VIAL INH SCH (07:53)
[2022-01-17] MEDS: IPRATROPIUM 0.5MG/ALBUTEROL 2.5MG INH SOL UD 3ML (DUONEB) NEB SCH ×4 (07:53→19:50)
[2022-01-17] MEDS: VITAMIN D 1,000 INTERNATIONAL UNITS TABLET PO SCH (11:06)
[2022-01-17] MEDS: PANTOPRAZOLE 40MG VIAL IV SCH (11:06)
[2022-01-17] MEDS: HYDROXYCHLOROQUINE 200 MG TAB PO SCH ×3 (11:06→21:13)
[2022-01-17] MEDS: ENOXAPARIN 80MG/0.8ML SYRINGE (J1650 PER 10MG) SC SCH (11:11)
[2022-01-17 11:51] LABS: ABG BASE EXCESS 6.1 (-2.0-2.0); ABG HCO3 34.5 MEQ/L (22.0-26.0); ABG O2 SATURATION 98.6 % (95.0-99.0); ABG PARTIAL PRESSURE O2 110.5 mmHg (75.0-100.0); ABG TOTAL CO2 36.6 MEQ/L (23.0-31.0); ABG pH (ARTERIAL) 7.312 UNITS (7.350-7.450)
[2022-01-17 12:05] LABS: ABG PARTIAL PRESSURE CO2 69.7 mmHg (35.0-45.0)
[2022-01-17] MEDS: AZITHROMYCIN INJ 500 MG, VIAL MATE ADAPTER 1 EACH in NS 250 ML IV SCH (13:28)
[2022-01-17 14:08] LABS: ANTI DS-DNA AB Negative (Negative)
[2022-01-17] MEDS: cefTRIAXone SOD 1 GM in D5W MINI-BAG PLUS 50 ML IV SCH (17:04)
[2022-01-17] MEDS: ACETYLCYSTEINE 20% 4 ML VIAL (200MG/ML) INH SCH (19:50)
[2022-01-17] MEDS ORDERED: ACETAMINOPHEN 500 MG TAB PO PRN (20:10)
[2022-01-18] VITALS (8 sets, daily range): BP systolic 118–143; BP diastolic 58–86; O2SAT 97
[2022-01-18] MEDS: ENOXAPARIN 80MG/0.8ML SYRINGE (J1650 PER 10MG) SC SCH ×3 (00:13→23:53)
[2022-01-18] MEDS: LEVOTHYROXINE 75MCG TABLET (0.075MG) PO SCH (05:18)
[2022-01-18] MEDS: LEVOTHYROXINE 100MCG TABLET (0.1MG) PO SCH (05:18)
[2022-01-18 05:45] LABS: BASO % 0.4 % (0.0-1.0); HEMATOCRIT 40.6 % (36.0-47.0); HEMOGLOBIN 11.5 g/dl (12.0-15.5); LYMPH # 0.6 10^3/uL (1.5-5.0); LYMPH % 8.1 % (24.0-44.0); MEAN CORPUSCULAR HEMOGLOBIN 27.3 pg (27.0-33.0); MEAN CORPUSCULAR HGB CONC 28.3 g/dl (32.0-36.5); MEAN CORPUSCULAR VOLUME 96.4 fl (80.0-96.0); MONO % 13.7 % (2.0-8.0); NEUTROPHILS # 5.8 10^3/uL (1.5-8.5); NEUTROPHILS % 77.3 % (36.0-66.0); PLATELET COUNT, AUTOMATED 189 10^3/uL (150-450); RED BLOOD COUNT 4.21 10^6/uL (4.00-5.40); WHITE BLOOD COUNT 7.5 10^3/uL (4.0-10.0)
[2022-01-18 05:58] LABS: ABG BASE EXCESS 3.8 (-2.0-2.0); ABG HCO3 32.1 MEQ/L (22.0-26.0); ABG O2 SATURATION 98.4 % (95.0-99.0); ABG PARTIAL PRESSURE CO2 67.7 mmHg (35.0-45.0); ABG PARTIAL PRESSURE O2 103.9 mmHg (75.0-100.0); ABG STANDARD HCO3 27.9 MEQ/L (22.0-26.0); ABG TOTAL CO2 34.2 MEQ/L (23.0-31.0); ABG pH (ARTERIAL) 7.294 UNITS (7.350-7.450)
[2022-01-18 06:07] LABS: ALBUMIN 2.1 GM/DL (3.2-5.2); ALT/SGPT 23 U/L (12-78); BILIRUBIN,TOTAL 0.3 MG/DL (0.2-1.0); BLOOD UREA NITROGEN 19 MG/DL (7-18); CALCIUM LEVEL 8.5 MG/DL (8.8-10.2); CARBON DIOXIDE LEVEL 37 MEQ/L (21-32); CHLORIDE LEVEL 107 MEQ/L (98-107); CREATININE FOR GFR 0.45 MG/DL (0.55-1.30); GLOMERULAR FILTRATION RATE > 60.0 (>39); GLUCOSE, FASTING 100 MG/DL (70-100); PHOSPHORUS LEVEL 3.1 MG/DL (2.5-4.9); POTASSIUM SERUM 4.3 MEQ/L (3.5-5.1); SODIUM LEVEL 143 MEQ/L (136-145); TOTAL PROTEIN 5.4 GM/DL (6.4-8.2)
[2022-01-18] MEDS: ACETYLCYSTEINE 20% 4 ML VIAL (200MG/ML) INH SCH (08:19)
[2022-01-18] MEDS: IPRATROPIUM 0.5MG/ALBUTEROL 2.5MG INH SOL UD 3ML (DUONEB) NEB SCH ×4 (08:19→18:59)
[2022-01-18] MEDS: PANTOPRAZOLE 40MG VIAL IV SCH (09:29)
[2022-01-18] MEDS: VITAMIN D 1,000 INTERNATIONAL UNITS TABLET PO SCH (09:29)
[2022-01-18] MEDS: HYDROXYCHLOROQUINE 200 MG TAB PO SCH ×3 (09:30→20:26)
[2022-01-18] MEDS: AZITHROMYCIN INJ 500 MG, VIAL MATE ADAPTER 1 EACH in NS 250 ML IV SCH (13:29)
[2022-01-18 14:39] LABS: ABG BASE EXCESS 7.1 (-2.0-2.0); ABG HCO3 34.4 MEQ/L (22.0-26.0); ABG O2 SATURATION 98.6 % (95.0-99.0); ABG PARTIAL PRESSURE CO2 62.2 mmHg (35.0-45.0); ABG PARTIAL PRESSURE O2 128.6 mmHg (75.0-100.0); ABG STANDARD HCO3 30.9 MEQ/L (22.0-26.0); ABG TOTAL CO2 36.3 MEQ/L (23.0-31.0)
[2022-01-18] MEDS: cefTRIAXone SOD 1 GM in D5W MINI-BAG PLUS 50 ML IV SCH (16:51)
[2022-01-19] VITALS (35 sets, daily range): BP systolic 139–189; BP diastolic 63–102
[2022-01-19 00:21] LABS: ABG BASE EXCESS 9.6 (-2.0-2.0); ABG HCO3 35.8 MEQ/L (22.0-26.0); ABG O2 SATURATION 98.6 % (95.0-99.0); ABG PARTIAL PRESSURE O2 119.3 mmHg (75.0-100.0); ABG STANDARD HCO3 33.4 MEQ/L (22.0-26.0); ABG TOTAL CO2 37.6 MEQ/L (23.0-31.0); ABG pH (ARTERIAL) 7.424 UNITS (7.350-7.450)
[2022-01-19] MEDS ORDERED: hydrALAZINE 20MG/ML 1ML VIAL (J0360 PER 20MG) IV ONE (04:15)
[2022-01-19] MEDS: LEVOTHYROXINE 75MCG TABLET (0.075MG) PO SCH (05:05)
[2022-01-19] MEDS: LEVOTHYROXINE 100MCG TABLET (0.1MG) PO SCH (05:05)
[2022-01-19 06:19] LABS: ABG BASE EXCESS 11.7 (-2.0-2.0); ABG HCO3 36.8 MEQ/L (22.0-26.0); ABG O2 SATURATION 94.5 % (95.0-99.0); ABG PARTIAL PRESSURE CO2 49.6 mmHg (35.0-45.0); ABG PARTIAL PRESSURE O2 63.5 mmHg (75.0-100.0); ABG STANDARD HCO3 35.4 MEQ/L (22.0-26.0); ABG TOTAL CO2 38.3 MEQ/L (23.0-31.0); ABG pH (ARTERIAL) 7.488 UNITS (7.350-7.450)
[2022-01-19] MEDS: IPRATROPIUM 0.5MG/ALBUTEROL 2.5MG INH SOL UD 3ML (DUONEB) NEB SCH ×5 (07:47→20:04)
[2022-01-19] MEDS: METOPROLOL TART 25 MG TABLET PO SCH ×2 (09:21→21:43)
[2022-01-19] MEDS: VITAMIN D 1,000 INTERNATIONAL UNITS TABLET PO SCH (09:21)
[2022-01-19] MEDS: PANTOPRAZOLE 40MG VIAL IV SCH (09:22)
[2022-01-19] MEDS: HYDROXYCHLOROQUINE 200 MG TAB PO SCH ×3 (09:22→21:42)
[2022-01-19 09:32] LABS: BASO % 0.4 % (0.0-1.0); HEMATOCRIT 41.5 % (36.0-47.0); HEMOGLOBIN 12.6 g/dl (12.0-15.5); LYMPH # 0.7 10^3/uL (1.5-5.0); LYMPH % 9.8 % (24.0-44.0); MEAN CORPUSCULAR HEMOGLOBIN 28.1 pg (27.0-33.0); MEAN CORPUSCULAR HGB CONC 30.4 g/dl (32.0-36.5); MEAN CORPUSCULAR VOLUME 92.6 fl (80.0-96.0); MONO # 0.8 10^3/uL (0.0-0.8); NEUTROPHILS # 5.9 10^3/uL (1.5-8.5); NEUTROPHILS % 77.9 % (36.0-66.0); PLATELET COUNT, AUTOMATED 216 10^3/uL (150-450); RED BLOOD COUNT 4.48 10^6/uL (4.00-5.40); WHITE BLOOD COUNT 7.6 10^3/uL (4.0-10.0)
[2022-01-19 09:48] LABS: INR 1.39; PROTHROMBIN TIME 17.5 SECONDS (12.7-14.5)
[2022-01-19 10:10] LABS: BLOOD UREA NITROGEN 9 MG/DL (7-18); CALCIUM LEVEL 8.5 MG/DL (8.8-10.2); CARBON DIOXIDE LEVEL 35 MEQ/L (21-32); CHLORIDE LEVEL 103 MEQ/L (98-107); CREATININE FOR GFR 0.29 MG/DL (0.55-1.30); GLOMERULAR FILTRATION RATE > 60.0 (>39); GLUCOSE, FASTING 85 MG/DL (70-100); POTASSIUM SERUM 3.8 MEQ/L (3.5-5.1); SODIUM LEVEL 142 MEQ/L (136-145)
[2022-01-19] MEDS: ENOXAPARIN 80MG/0.8ML SYRINGE (J1650 PER 10MG) SC SCH ×2 (12:44)
[2022-01-19] MEDS: hydrALAZINE 20MG/ML 1ML VIAL (J0360 PER 20MG) IV SCH ×2 (17:09→21:00)
[2022-01-19] MEDS: WARFARIN SOD 2MG TAB PO SCH (17:10)
[2022-01-19] MEDS: cefTRIAXone SOD 1 GM in D5W MINI-BAG PLUS 50 ML IV SCH (17:10)
[2022-01-20] VITALS (20 sets, daily range): BP systolic 120–175; BP diastolic 53–86
[2022-01-20] MEDS: ENOXAPARIN 80MG/0.8ML SYRINGE (J1650 PER 10MG) SC SCH ×3 (00:15→23:51)
[2022-01-20] MEDS: hydrALAZINE 20MG/ML 1ML VIAL (J0360 PER 20MG) IV SCH ×3 (00:16→08:05)
[2022-01-20] MEDS: LEVOTHYROXINE 75MCG TABLET (0.075MG) PO SCH (05:16)
[2022-01-20] MEDS: LEVOTHYROXINE 100MCG TABLET (0.1MG) PO SCH (05:16)
[2022-01-20 05:37] LABS: ABG BASE EXCESS 10.8 (-2.0-2.0); ABG HCO3 37.6 MEQ/L (22.0-26.0); ABG O2 SATURATION 94.6 % (95.0-99.0); ABG PARTIAL PRESSURE CO2 57.8 mmHg (35.0-45.0); ABG PARTIAL PRESSURE O2 68.6 mmHg (75.0-100.0); ABG STANDARD HCO3 34.6 MEQ/L (22.0-26.0); ABG TOTAL CO2 39.4 MEQ/L (23.0-31.0); ABG pH (ARTERIAL) 7.431 UNITS (7.350-7.450)
[2022-01-20 06:21] LABS: BASO % 0.4 % (0.0-1.0); HEMATOCRIT 46.1 % (36.0-47.0); HEMOGLOBIN 14.3 g/dl (12.0-15.5); LYMPH # 0.7 10^3/uL (1.5-5.0); LYMPH % 7.1 % (24.0-44.0); MEAN CORPUSCULAR HEMOGLOBIN 27.9 pg (27.0-33.0); MEAN CORPUSCULAR VOLUME 89.9 fl (80.0-96.0); MONO # 0.8 10^3/uL (0.0-0.8); MONO % 8.6 % (2.0-8.0); NEUTROPHILS # 7.6 10^3/uL (1.5-8.5); PLATELET COUNT, AUTOMATED 270 10^3/uL (150-450); RED BLOOD COUNT 5.13 10^6/uL (4.00-5.40); WHITE BLOOD COUNT 9.1 10^3/uL (4.0-10.0)
[2022-01-20 06:46] LABS: BLOOD UREA NITROGEN 8 MG/DL (7-18); CARBON DIOXIDE LEVEL 35 MEQ/L (21-32); CHLORIDE LEVEL 99 MEQ/L (98-107); CREATININE FOR GFR 0.35 MG/DL (0.55-1.30); GLOMERULAR FILTRATION RATE > 60.0 (>39); GLUCOSE, FASTING 110 MG/DL (70-100); POTASSIUM SERUM 4.2 MEQ/L (3.5-5.1); SODIUM LEVEL 138 MEQ/L (136-145)
[2022-01-20] MEDS ORDERED: hydrALAZINE 20MG/ML 1ML VIAL (J0360 PER 20MG) IV ONE (07:30)
[2022-01-20] MEDS: IPRATROPIUM 0.5MG/ALBUTEROL 2.5MG INH SOL UD 3ML (DUONEB) NEB SCH ×4 (07:39→20:04)
[2022-01-20] MEDS: VITAMIN D 1,000 INTERNATIONAL UNITS TABLET PO SCH (08:49)
[2022-01-20] MEDS: HYDROXYCHLOROQUINE 200 MG TAB PO SCH ×3 (08:49→19:48)
[2022-01-20] MEDS: METOPROLOL TART 25 MG TABLET PO SCH ×2 (08:50→19:48)
[2022-01-20] MEDS: PANTOPRAZOLE 40MG VIAL IV SCH (08:55)
[2022-01-20] MEDS ORDERED: FUROSEMIDE 20 MG TAB PO SCH (09:00)
[2022-01-20 13:27] LABS: INR 1.13; PROTHROMBIN TIME 14.9 SECONDS (12.7-14.5)
[2022-01-20] MEDS: WARFARIN SOD 2MG TAB PO SCH (16:55)
[2022-01-20] MEDS: cefTRIAXone SOD 1 GM in D5W MINI-BAG PLUS 50 ML IV SCH (16:55)
[2022-01-20 21:26] LABS: ABG HCO3 37.2 MEQ/L (22.0-26.0); ABG O2 SATURATION 95.5 % (95.0-99.0); ABG PARTIAL PRESSURE CO2 55.2 mmHg (35.0-45.0); ABG PARTIAL PRESSURE O2 72.2 mmHg (75.0-100.0); ABG STANDARD HCO3 34.7 MEQ/L (22.0-26.0); ABG TOTAL CO2 38.9 MEQ/L (23.0-31.0); ABG pH (ARTERIAL) 7.447 UNITS (7.350-7.450)
[2022-01-21] VITALS (101 sets, daily range): BP systolic 52–165; BP diastolic 30–78
[2022-01-21] MEDS ORDERED: ISOVUE-370 76% 100ML VIAL As Ordered ONE (00:26)
[2022-01-21] MEDS ORDERED: SUCCINYLCHOLINE INJ 200 MG/10 ML VIAL (J0330) IV STA (01:12)
[2022-01-21] MEDS ORDERED: propofoL 200 MG/20 ML VIAL IV ONE (01:12)
[2022-01-21] MEDS ORDERED: PHENYLEPHRINE 10MG/ML 1ML VIAL (J2370 PER 1) As Ordered ONE (01:13)
[2022-01-21] MEDS ORDERED: NS 1,000 ML IV ONE (01:20)
[2022-01-21] MEDS ORDERED: PHENYLephrine 500MCG 5ML (100MCG/ML) SYRINGE As Ordered ONE (01:24)
[2022-01-21] MEDS ORDERED: ePHEDrine SULFATE 25 MG/5 ML(5MG/ML) SYRINGE As Ordered ONE ×2 (01:24→01:25)
[2022-01-21] MEDS ORDERED: PHENYLEPHRINE 10MG/ML 1ML VIAL (J2370 PER 1) IV ONE (01:26)
[2022-01-21] MEDS ORDERED: ePHEDrine INJ 50 MG/ML VIAL IV STA (01:26)
[2022-01-21] MEDS ORDERED: PHENYLEPHRINE HCL INJ 50 MG in D5W 495 ML IV SCH ×2 (01:35→13:35)
[2022-01-21] MEDS: NS 1,000 ML IV SCH ×3 (01:50→19:47)
[2022-01-21] MEDS ORDERED: REFRIGERATOR IV KEYS XX PRN (02:10)
[2022-01-21] MEDS: MIDAZOLAM HCL 100 MG in D5W 80 ML IV SCH (02:34)
[2022-01-21] MEDS: propofoL 1,000 MG in IV 1 EA IV SCH ×2 (04:22→16:15)
[2022-01-21] MEDS: LEVOTHYROXINE 75MCG TABLET (0.075MG) PO SCH (05:13)
[2022-01-21] MEDS: LEVOTHYROXINE 100MCG TABLET (0.1MG) PO SCH (05:13)
[2022-01-21] MEDS ORDERED: ONDANSETRON 4MG 2ML VIAL IV PRN (05:40)
[2022-01-21 05:49] LABS: ABG BASE EXCESS 8.5 (-2.0-2.0); ABG HCO3 30.9 MEQ/L (22.0-26.0); ABG O2 SATURATION 99.1 % (95.0-99.0); ABG PARTIAL PRESSURE O2 149.1 mmHg (75.0-100.0); ABG STANDARD HCO3 32.3 MEQ/L (22.0-26.0); ABG pH (ARTERIAL) 7.564 UNITS (7.350-7.450)
[2022-01-21] MEDS ORDERED: METOCLOPRAMIDE INJ 10MG/2ML VIAL (J2765 PER 1) IV SCH (06:00)
[2022-01-21 06:15] LABS: BASO % 0.3 % (0.0-1.0); HEMATOCRIT 37.6 % (36.0-47.0); LYMPH # 0.6 10^3/uL (1.5-5.0); LYMPH % 7.7 % (24.0-44.0); MEAN CORPUSCULAR HEMOGLOBIN 28.4 pg (27.0-33.0); MEAN CORPUSCULAR HGB CONC 31.9 g/dl (32.0-36.5); MEAN CORPUSCULAR VOLUME 89.1 fl (80.0-96.0); MONO # 0.7 10^3/uL (0.0-0.8); MONO % 8.3 % (2.0-8.0); NEUTROPHILS # 6.4 10^3/uL (1.5-8.5); NEUTROPHILS % 82.4 % (36.0-66.0); PLATELET COUNT, AUTOMATED 223 10^3/uL (150-450); RED BLOOD COUNT 4.22 10^6/uL (4.00-5.40); WHITE BLOOD COUNT 7.8 10^3/uL (4.0-10.0)
[2022-01-21 06:29] LABS: INR 1.45
[2022-01-21 06:41] LABS: BLOOD UREA NITROGEN 11 MG/DL (7-18); CALCIUM LEVEL 8.2 MG/DL (8.8-10.2); CARBON DIOXIDE LEVEL 33 MEQ/L (21-32); CHLORIDE LEVEL 104 MEQ/L (98-107); CREATININE FOR GFR 0.38 MG/DL (0.55-1.30); GLOMERULAR FILTRATION RATE > 60.0 (>39); GLUCOSE, FASTING 94 MG/DL (70-100); POTASSIUM SERUM 3.4 MEQ/L (3.5-5.1); SODIUM LEVEL 141 MEQ/L (136-145)
[2022-01-21] MEDS: IPRATROPIUM 0.5MG/ALBUTEROL 2.5MG INH SOL UD 3ML (DUONEB) NEB SCH ×4 (07:28→19:27)
[2022-01-21] MEDS: METOPROLOL TART 25 MG TABLET PO SCH (08:25)
[2022-01-21] MEDS: VITAMIN D 1,000 INTERNATIONAL UNITS TABLET PO SCH (10:05)
[2022-01-21] MEDS: HYDROXYCHLOROQUINE 200 MG TAB PO SCH ×3 (10:06→20:18)
[2022-01-21] MEDS: CHLORHEXIDINE GLUCONATE 0.12 % 15ML UDC (PERIDEX ORAL RINSE) MT SCH ×2 (10:06→20:18)
[2022-01-21] MEDS: PANTOPRAZOLE 40MG VIAL IV SCH (10:06)
[2022-01-21] MEDS ORDERED: MIDAZOLAM INJ 2MG/2ML VIAL (J2250 PER 1MG) IV STA (11:40)
[2022-01-21] MEDS ORDERED: NS 500 ML IV ONE (12:00)
[2022-01-21] MEDS ORDERED: MIDAZOLAM INJ 2MG/2ML VIAL (J2250 PER 1MG) IV PRN (13:00)
[2022-01-21] MEDS: ENOXAPARIN 80MG/0.8ML SYRINGE (J1650 PER 10MG) SC SCH (13:38)
[2022-01-22] VITALS (30 sets, daily range): BP systolic 96–152; BP diastolic 51–77
[2022-01-22] MEDS: ENOXAPARIN 80MG/0.8ML SYRINGE (J1650 PER 10MG) SC SCH ×2 (00:06→12:56)
[2022-01-22] MEDS: MIDAZOLAM HCL 100 MG in D5W 80 ML IV SCH (00:21)
[2022-01-22] MEDS: LEVOTHYROXINE 75MCG TABLET (0.075MG) PO SCH (05:05)
[2022-01-22] MEDS: LEVOTHYROXINE 100MCG TABLET (0.1MG) PO SCH (05:05)
[2022-01-22 05:31] LABS: BASO % 0.6 % (0.0-1.0); HEMOGLOBIN 11.2 g/dl (12.0-15.5); LYMPH % 15.5 % (24.0-44.0); MEAN CORPUSCULAR HEMOGLOBIN 27.4 pg (27.0-33.0); MEAN CORPUSCULAR HGB CONC 29.5 g/dl (32.0-36.5); MEAN CORPUSCULAR VOLUME 92.9 fl (80.0-96.0); MONO # 0.6 10^3/uL (0.0-0.8); MONO % 9.6 % (2.0-8.0); NEUTROPHILS # 4.8 10^3/uL (1.5-8.5); NEUTROPHILS % 73.1 % (36.0-66.0); PLATELET COUNT, AUTOMATED 193 10^3/uL (150-450); RED BLOOD COUNT 4.09 10^6/uL (4.00-5.40); WHITE BLOOD COUNT 6.6 10^3/uL (4.0-10.0)
[2022-01-22 05:37] LABS: INR 1.49; PROTHROMBIN TIME 18.5 SECONDS (12.7-14.5)
[2022-01-22 05:50] LABS: ABG BASE EXCESS 4.6 (-2.0-2.0); ABG HCO3 28.2 MEQ/L (22.0-26.0); ABG O2 SATURATION 99.3 % (95.0-99.0); ABG PARTIAL PRESSURE CO2 38.1 mmHg (35.0-45.0); ABG PARTIAL PRESSURE O2 194.7 mmHg (75.0-100.0); ABG STANDARD HCO3 28.6 MEQ/L (22.0-26.0); ABG TOTAL CO2 29.4 MEQ/L (23.0-31.0); ABG pH (ARTERIAL) 7.487 UNITS (7.350-7.450)
[2022-01-22 06:01] LABS: BLOOD UREA NITROGEN 13 MG/DL (7-18); CALCIUM LEVEL 7.4 MG/DL (8.8-10.2); CARBON DIOXIDE LEVEL 26 MEQ/L (21-32); CHLORIDE LEVEL 109 MEQ/L (98-107); CREATININE FOR GFR 0.29 MG/DL (0.55-1.30); GLOMERULAR FILTRATION RATE > 60.0 (>39); GLUCOSE, FASTING 71 MG/DL (70-100); POTASSIUM SERUM 3.7 MEQ/L (3.5-5.1); SODIUM LEVEL 141 MEQ/L (136-145)
[2022-01-22] MEDS: NS 1,000 ML IV SCH (06:12)
[2022-01-22] MEDS: IPRATROPIUM 0.5MG/ALBUTEROL 2.5MG INH SOL UD 3ML (DUONEB) NEB SCH ×2 (07:55→12:49)
[2022-01-22] MEDS: VITAMIN D 1,000 INTERNATIONAL UNITS TABLET PO SCH (09:25)
[2022-01-22] MEDS: HYDROXYCHLOROQUINE 200 MG TAB PO SCH (09:25)
[2022-01-22] MEDS: PANTOPRAZOLE 40MG VIAL IV SCH (09:26)
[2022-01-22] MEDS: CHLORHEXIDINE GLUCONATE 0.12 % 15ML UDC (PERIDEX ORAL RINSE) MT SCH (09:27)
[2022-01-22] MEDS ORDERED: ACETAMINOPHEN TAB 650MG DOSE (2X325MG) PO PRN (15:25)
[2022-01-22] MEDS ORDERED: MORPHINE 10MG/0.5ML ORAL CONCENTRATE SOLUTION U/D SL PRN (15:25)
[2022-01-22] MEDS ORDERED: SCOPOLAMINE 1MG TRANSDERMAL PATCH TOP PRN (15:25)
[2022-01-22] MEDS ORDERED: MORPHINE 2 MG/ML 1ML VIAL IV PRN (15:25)
[2022-01-22] MEDS ORDERED: ACETAMINOPHEN 650 MG SUPP PR PRN (15:25)
[2022-01-22] MEDS ORDERED: HYOSCYAMINE SULFATE 0.125 MG SUBL TABLET PO PRN (15:25)
[2022-01-22] MEDS ORDERED: ONDANSETRON 4MG 2ML VIAL IV PRN (15:25)
[2022-01-22] MEDS ORDERED: FLEET ENEMA PR PRN (15:25)
[2022-01-22] MEDS ORDERED: BISACODYL 10 MG SUPP PR PRN (15:25)
[2022-01-22] MEDS ORDERED: LORazepam 1 MG TAB PO PRN (15:25)
[2022-01-22] MEDS: ATROPINE SULFATE 1% OP SOLN 2 ML BTL SL PRN ×2 (17:28→20:32)
[2022-01-23] MEDS: ATROPINE SULFATE 1% OP SOLN 2 ML BTL SL PRN (02:31)
[2022-01-25] MEDS ORDERED: guaiFENesin 200 MG TAB PO PRN (10:00)
== END 2022-01-27 08:25 | disposition expired | DRG 208 ==
LOC: M ED 10:39 → EDBD 10:39 → M ED INP 15:10 → ENRESERV 15:25 → M ICU 16:23 → M MS5PR 01-23 15:55
PROVIDERS: ADMIT Internal Medicine Critical Care Medicine; ATTEND Family Medicine
PROC: 5A1945Z Respiratory Ventilation, 24-96 Consecutive Hours (ICD-10-PCS; principal; 2022-01-11)
PROC: B246ZZZ Ultrasonography of Right and Left Heart (ICD-10-PCS; 2022-01-18)
PROC: 0BH17EZ Insertion of Endotracheal Airway into Trachea, Via Natural or Artificial Opening (ICD-10-PCS; 2022-01-21)
DX: J96.02 Acute respiratory failure with hypercapnia (principal); G93.41 Metabolic encephalopathy; J18.9 Pneumonia, unspecified organism; R40.20 Unspecified coma; G25.82 Stiff-man syndrome; E87.2 Acidosis; E87.3 Alkalosis; N39.0 Urinary tract infection, site not specified; I50.32 Chronic diastolic (congestive) heart failure; M32.9 Systemic lupus erythematosus, unspecified; I48.91 Unspecified atrial fibrillation; R42 Dizziness and giddiness; Z79.01 Long term (current) use of anticoagulants; Z79.899 Other long term (current) drug therapy; R13.10 Dysphagia, unspecified; Z66 Do not resuscitate; J40 Bronchitis, not specified as acute or chronic; J98.6 Disorders of diaphragm; Z86.711 Personal history of pulmonary embolism; F03.90 Unspecified dementia, unspecified severity, without behavioral disturbance, psychotic disturbance, mood disturbance, and anxiety; I11.0 Hypertensive heart disease with heart failure; E03.9 Hypothyroidism, unspecified; Z79.890 Hormone replacement therapy; Z85.41 Personal history of malignant neoplasm of cervix uteri; J96.01 Acute respiratory failure with hypoxia; I95.9 Hypotension, unspecified